=== PATIENT | female | born 1940 | race Caucasian/White ===

== ENCOUNTER 2017-08-22 11:57 | Inpatient (IN) ==
--- NOTE | 2017-08-22 13:42 | Emergency Department Report ---
General Adult HPI - General Chief complaint: Medical Emergency Stated complaint: constipation, alter ment status Time Seen by Provider: 08/22/17 13:24 Source: family Mode of arrival: wheelchair Limitations: altered mental status - History of Present Illness HPI narrative: Patient is a 76-year-old female who resides at home with her . She has severe dementia and has had a steady. Physical decline over the past 2 weeks. Patient's reports that he is no longer able to care for her at home. They have had home health. However, patient has not had a bowel movement for over one week. Patient arrives by wheelchair, she is breathing on room air. Does not appear to be in any acute distress. Onset (ago): day(s) Location: abdomen Radiation: non-radiation Treatments prior to arrival: none - Related Data Home Medications Medication Instructions Recorded Confirmed Aspirin 81 mg PO DAILY 08/07/17 08/22/17 Atorvastatin [Lipitor] 20 mg PO HS 08/07/17 08/22/17 Cholecalciferol (Vitamin D3) 2,000 unit PO DAILY 08/07/17 08/22/17 [Vitamin D3] Hydrocodone/APAP 7.5/325 [[place] 1 tab PO Q4H PRN 08/07/17 08/22/17 7.5/325] Insulin Glargine,Hum.rec.anlog 22 unit SQ HS 08/07/17 08/22/17 [Lantus Solostar] Insulin Lispro [HumaLOG] 19 unit SQ TIDWM 08/07/17 08/22/17 Lisinopril [Prinivil] 20 mg PO HS 08/07/17 08/22/17 Pantoprazole Sodium [Protonix] 40 mg PO ACB 08/07/17 08/22/17 Potassium Chloride [Klor-Con 10] 20 meq PO DAILY 08/07/17 08/22/17 Venlafaxine HCl [Venlafaxine HCl 150 mg PO HS 08/07/17 08/22/17 ER] hydroCHLOROthiazide 25 mg PO QAM 08/07/17 08/22/17 [Hydrochlorothiazide] Cariprazine HCl [Vraylar] 1.5 mg PO DAILY 08/22/17 08/22/17 Allergies Allergy/AdvReac Type Severity Reaction Status Date / Time codeine AdvReac Intermediate CRAZY Verified 08/22/17 13:47 Review of Systems Limitations: ROS unobtainable due to patient's medical condition (dementia) PFSH Patient Stated Medical History Cerebrovascular Accident Yes Dementia Yes Transient Ischemic Attacks ( Yes: multiple TIA) Cataracts Yes Angina Yes Hypertension Yes Pneumonia Yes Diabetes Mellitus Type 2 Yes Gastroesophageal Reflux Yes Disease Hx Incontinence Yes Hx Urinary Tract Infection Yes Other Musculoskeletal Yes: FRACTURES Depression Yes Surgical History: Multiple orthopedic surgeries Family History Updates: N/A - Social History Smoking status: Never smoker Housing: house Household members: spouse Social history: PCP Dr Cohn Physical Exam - Normal Exams: Eyes:: Pupils are PERRLA w/ EOMI Chest/Respirations:: Clear all batista Cardiovascular:: Regular rate and rhythm Abdomen:: Bowel sounds positive, soft, non-tender Neurological:: Patient is alert Course Vital Signs Temperature 98.3 F 08/22/17 12:10 Pulse Rate 90 08/22/17 12:10 Respiratory Rate 20 08/22/17 12:10 Blood Pressure 115/67 08/22/17 12:10 Pulse Oximetry 96 08/22/17 12:10 Temperature 97.2 F 08/22/17 16:28 Pulse Rate 95 08/22/17 17:00 Respiratory Rate 20 08/22/17 16:28 Blood Pressure 134/71 08/22/17 16:28 Pulse Oximetry 95 08/22/17 16:28 Medical Decision Making - [facility] Narrative Medical decision making narrative: 1500- [facility]. Discussed patient's history, clinical exam, hyperkalemia. He accepts patient for inpatient admission. Will give IV calcium gluconate, dextrose and insulin to help with hyperkalemia. Discussed plan of admission with patient's . - Differential Diagnosis small bowel obstruction, ileus, weakness, altered mentation - Lab Data Result diagrams: 08/22/17 14:00 08/22/17 16:55 Lab Results 08/22/17 08/22/17 Range/Units 13:59 14:00 WBC 9.2 (4.5-11.0) T/MM3 RBC 3.90 L (4.00-5.20) M/MM3 Hgb 12.0 (12-16) GM/DL Hct 37.1 (36-46) % MCV 95.1 (80-100) UM3 MCH 30.8 (26-34) UUG MCHC 32.3 (31-37) GM/DL RDW Std Deviation 44.6 (36.9-50.2) FL Plt Count 248 D (130-400) T/MM3 MPV 9.2 L (9.4-12.4) UM3 Immature Gran % (Auto) 0.1 (0.0-0.5) % Neut % (Auto) 61.8 (33-66) % Lymph % (Auto) 25.7 (23-45) % [place] % (Auto) 10.4 H (0-9.0) % Eos % (Auto) 1.7 (0-4) % Baso % (Auto) 0.3 (0-2) % Neut # (Auto) 5.7 (1.8-7.7) T/MM3 Lymph # (Auto) 2.4 (1-4.8) T/MM3 [place] # (Auto) 1.0 H (0-0.8) T/MM3 Eos # (Auto) 0.2 (0-0.5) T/MM3 Baso # (Auto) 0.0 (0-0.2) T/MM3 Abs Immat Gran (auto) 0.01 (0.00-0.03) T/MM3 Turbidity < 20 (0-20) Sodium 143 (134-144) MEQ/L Potassium 6.5 H* (3.6-5) MEQ/L Chloride 107 (98-107) MEQ/L Carbon Dioxide 24 (22-30) MEQ/L Anion Gap 12 (5-15) MEQ/L BUN 48.0 H (7-17) MG/DL Creatinine 1.8 H (0.7-1.2) MG/DL GFR Calculation 27 BUN/Creatinine Ratio 27 H (6-26) RATIO Glucose 102 (65-110) MG/DL Calculated Osmolality 288 H (261-280) MOSM/KG Calcium 9.9 (8.4-10.2) MG/DL Total Bilirubin 0.70 (0.20-1.30) MG/DL Icterus Index < 2 (0-7) AST 26 (14-36) U/L ALT 36 (9-52) U/L Alkaline Phosphatase 153 H (38-126) U/L Total Protein 7.2 (6.3-8.2) G/DL Albumin 4.0 (3.5-5.0) G/DL Globulin 3.2 (2.4-3.6) G/DL Albumin/Globulin Ratio 1.3 (1.1-2.2) RATIO Specimen Hemolysis < 15 (0-25) Disposition Clinical Impression: Acute hyperkalemia Disposition: 02 To [facility] [place] Condition: Stable Time of Disposition: 15:14 - Seen By: midlevel
--- OUTSIDE RECORDS SUMMARY | 2017-08-22 13:56 | External Medical Summary | Continuity of Care Document ---
:1940 Author Organization [facility] Allergies There is no data. Medications There is no data. Problems There is no data. Procedures There is no data. Results There is no data. Encounters ACCT No. Visit Discharge Status Pt. Type Provider Facility Loc./Unit Complaint Date/Time [id number] 09/10/2013 09/10/2013 CLS Outpatient 10:41:00 23:59:59 [id number] 09/03/2013 09/03/2013 CLS Outpatient 10:01:00 23:59:59 [id number] 09/02/2013 09/02/2013 CLS Outpatient 14:35:00 23:59:59 [id number] 06/09/2013 06/09/2013 CLS Outpatient 09:24:00 23:59:59 [id number] 04/24/2013 04/24/2013 CLS Outpatient 10:02:00 23:59:59
--- NOTE | 2017-08-22 14:21 | XRay Report ---
Indication: constipation PROCEDURE: XR abdomen 2V: Encounter: Initial Comparison: None Findings: The visualized lung bases are clear. There is no free air on the upright view. The bowel gas pattern is nonobstructive and nonspecific. Gas is seen in nondilated small and large bowel to the level of the rectum. Moderate stool is seen throughout the colon. Impression: Nonobstructive nonspecific bowel gas pattern. .
[2017-08-22] MEDS ORDERED: NS 1,000 ML IV ONE (14:35)
[2017-08-22] MEDS ORDERED: SODIUM POLYSTYRENE SULFONATE 15 GM/60 ML BOTTLE PO ONE (14:38)
[2017-08-22] MEDS ORDERED: CALCIUM GLUCONATE 1,000mg/10ml INJECTION IVP ONE (15:10)
[2017-08-22] MEDS ORDERED: DEXTROSE 50% SYRINGE 50ml (1 AMP) IVP ONE (15:13)
[2017-08-22] MEDS ORDERED: INSULIN REGULAR, HUMAN 100 UNIT/ML INJECTION IVP ONE (15:13)
[2017-08-22] MEDS ORDERED: BISACODYL 10 MG SUPPOSITORY RECTALLY ONE (16:14)
[2017-08-22] MEDS ORDERED: ONDANSETRON 4 MG/2 ML INJECTION IVP PRN (16:29)
[2017-08-22 16:34] VITALS: BMI 39.1
[2017-08-22] MEDS: 1/2 NS 1,000 ML IV SCH (16:36)
--- NOTE | 2017-08-22 16:39 | History & Physical Report ---
History of Present Illness Date: 08/22/17 Chief complaint: Constipation HPI: Yesi Griffin is a 76 year old woman with a hx of advanced dementia. She lives at home with family and per ED report, has had quite a decline over the last 2 weeks despite having home health support. Please note that the patient is unable to participate in any part of the interview process d/t dementia, and family was unavailable. She has had 3 ED visits this month: the first was on 08/07 for a fall, and all imaging studies (CT head/c-spine/maxillofacial; CXR; B/ L hands/wrists, and left humerus) were negative for acute findings. She returned on 08/12/17 for a possible fall, and was diagnosed with UTI. She was Rx Bactrim SS BID [id number]. Urine culture grew out Klebsiella pneumoniae, sensitive to Bactrim. At that time, K was 4.9, BUN 51, and creatinine was 1.5. She returned again on 08/22/17 d/t constipation. She hasn't had a BM x1 week. Labs on 08/22/17 showed K of 6.5, BUN of 48, and creatinine of 1.8. Review of [facility] records revealed creatinine 1.1-1.5 in 2017, K 5.3-5.4 in 2017, and A1c of 6.4% in December,. She was diagnosed with UTI x2 in 2017, once with Klebsiella and the other with E. coli. KUB on 08/22/17 showed nonspecific bowel gas pattern and moderate amount of colonic stool. In the ED, she received Kayexelate 30 gm, NS 1L, plus calcium, insulin, and dextrose. With her severe hyperkalemia and elevated creatinine, she was admitted to inpatient status under the hospitalist service. Review of Systems ROS unobtainable: due to mental status Past Medical History Vascular dementia CVA/TIA Broca's aphasia HTN Dyslipidemia DM type 2 CKD Chronic hyperkalemia, 5.3-5.4 Sleep apnea Chronic low back pain and leg pain GERD Environmental allergies Urinary incontinence Anxiety, depression Surgical History: Multiple orthopedic surgeries Family History Updates: Family history is unobtainable from patient. Per outside records, her mother had CAD and DM; father had dementia and DM. A brother from an accident. - Social History Smoking status: Never smoker Social history: PCP Dr Cohn Medications Home Medications Medication Instructions Recorded Confirmed Type Aspirin 81 mg PO DAILY 08/07/17 08/22/17 History Atorvastatin [Lipitor] 20 mg PO HS 08/07/17 08/22/17 History Cholecalciferol (Vitamin D3) 2,000 unit PO DAILY 08/07/17 08/22/17 History [Vitamin D3] Hydrocodone/APAP 7.5/325 [[place] 1 tab PO Q4H PRN 08/07/17 08/22/17 History 7.5/325] Insulin Glargine,Hum.rec.anlog 22 unit SQ HS 08/07/17 08/22/17 History [Lantus Solostar] Insulin Lispro [HumaLOG] 19 unit SQ TIDWM 08/07/17 08/22/17 History Lisinopril [Prinivil] 20 mg PO HS 08/07/17 08/22/17 History Pantoprazole Sodium [Protonix] 40 mg PO ACB 08/07/17 08/22/17 History Potassium Chloride [Klor-Con 10] 20 meq PO DAILY 08/07/17 08/22/17 History Venlafaxine HCl [Venlafaxine HCl 150 mg PO HS 08/07/17 08/22/17 History ER] hydroCHLOROthiazide 25 mg PO QAM 08/07/17 08/22/17 History [Hydrochlorothiazide] Cariprazine HCl [Vraylar] 1.5 mg PO DAILY 08/22/17 08/22/17 History Allergies Allergy/AdvReac Type Severity Reaction Status Date / Time codeine AdvReac Intermediate CRAZY Verified 08/22/17 13:47 Exam Vital Signs: Temperature 97.2 F 08/22/17 16:28 Pulse Rate 103 H 08/22/17 16:28 Respiratory Rate 20 08/22/17 16:28 Blood Pressure 134/71 08/22/17 16:28 Pulse Oximetry 95 08/22/17 16:28 Height/Weight/BMI: Height 1.55 m Weight 93.9 kg Body Mass Index 39.1 - Constitutional Present: mild distress (restless), well nourished, well developed, obese - Routine HEENT Exam Head: Present: normocephalic Eye: Present: PERRL. Absent: conjunctival icterus, scleral injection ENT: Present: mucous membranes dry, oropharynx clear - Routine Neck Exam Present: supple - Routine Respiratory Exam Present: CTA bilaterally - Routine Cardiovascular Exam Present: RRR, S1, S2 - Routine Abdominal Exam Present: soft, normoactive bowel sounds, non distended, non tender - Routine Extremities Exam Present: edema (B/L pedal edema trace-1+. Left leg has a larger calf circumference and she complains of diffuse tenderness on palpation of left leg but not right. Her calf is soft to palpation. She has a well-healed scar from total knee replacement on her right knee.), pulses intact - Routine Skin Exam Present: intact, dry, warm - Routine Neurological Exam Present: alert (to self only), tremors. Absent: oriented X3, normal speech ( mumbles, very difficult to understand) - Routine Psychiatric Exam Present: unable to assess (restless, pulls at gown, tries to reposition herself in bed) Results - Labs CBC & Chem 7: 08/22/17 14:00 08/22/17 16:55 - ECG Data Tracing #1 I reviewed this ECG and interpreted as documented below: NSR with slightly peaked T waves, left axis deviation, fair r-wave progression, no st segment elevation/depression. Fair amount of artifact present. Assessment and Plan Assessment and Plan: IMPRESSION Hyperkalemia with K of 6.5, POA (history of chronic hyperkalemia, 5.3-5.4) Elevated creatinine of 1.8, baseline 1.1-1.5 Constipation Recent UTI with Klebsiella pneumoniae, treated with Bactrim x 10 days (course completed 08/21) Vascular dementia CVA/TIA Broca's aphasia HTN Dyslipidemia DM type 2, A1c was 6.4% in December, CKD Sleep apnea Chronic low back pain and leg pain GERD Environmental allergies Urinary incontinence, recurrent UTI Anxiety, depression PLAN Admit, inpatient status under Dr. Galeano. Hyperkalemia/elevated Creatinine: urgent treatment rendered in ED; Recheck K improved to 5.5. Will continue with IVF of 1/2 NS at 125 mL/hr. EKG obtain, showing peaked T waves. Monitor telemetry. UA pending. Constipation: dulcolax suppository x1; initiate oral bowel regimen of MiraLAX BID and Senna Plus BID; Lactulose PRN. Consult speech therapy d/t hx of aphasia; with advancing dementia she carries a risk of aspiration. May need [facility] screen when patient stabilizes. Code status is unknown -- will order as full code until this can be discussed with family. Froylan Repeat potassium showing decrease to 5.5. Discussed code status with family-request DNR. Order written. DVT Prophylaxis: SCD's Resuscitation Status: Do Not Resuscitate - Physician Narrative Physician: Lan Galeano MD Narrative: Date: 08/22/17 Time: 1933 Have independently interviewed and examined pt. Chart reviewed. Case discussed with ED provider, pt's and son, and my CONCILIATION COURT JUDGE. Care plan developed with my supervision; agree with above. Present to ED secondary to increasing weakness, decreased oral drive, and declining function at home. Multiple falls in recent past. Recent UTI treated with Bactrim. Patient not been eating/drinking last several days. Pt advanced dementia and acute illness preclude her from interacting with question. Found to have elevated potassium at 6.5 in ED. Placed in inpatient status for further treatment. Lungs: decreased CV: regular AB: soft nt MSE: nonverbal. Plan: Inpatient admission. IVF bolus given in ED. Given IV calcium/D50/Insulin to help shift potassium - repeat potassium showing decrease to 5.5. Speech to check swallow. Hold on Insulins for now-monitor blood sugar. Possible [facility] evaluation due to her dementia and decline. Likely needing shelter nursing care due to advancing dementia. Discussed code status with family - report patient is DNR. Hospital Course Summary Disclaimer: The visit summary below is not to be considered part of the above Progress Note. Hospital Course: 08/22/17 Admit, inpatient status under Dr. Galeano. Hyperkalemia/elevated Creatinine: urgent treatment rendered in ED; Recheck K improved to 5.5. Will continue with IVF of 1/2 NS at 125 mL/hr. EKG obtain, showing peaked T waves. Monitor telemetry. UA pending. Constipation: dulcolax suppository x1; initiate oral bowel regimen of MiraLAX BID and Senna Plus BID; Lactulose PRN. Consult speech therapy d/t hx of aphasia; with advancing dementia she carries a risk of aspiration. May need [facility] screen when patient stabilizes. Code status is unknown -- will order as full code until this can be discussed with family.
[2017-08-22] MEDS ORDERED: LACTULOSE 20 GM/30 ML ORAL LIQUID PO PRN (17:04)
[2017-08-22] MEDS: HALOPERIDOL 5 MG/ML INJECTION IVP PRN (21:21)
[2017-08-22] MEDS: SENNA + DOCUSATE TABLET PO SCH (21:21)
[2017-08-22] MEDS: POLYETHYL GLYCOL 3350 17gm PACKET PO SCH (21:21)
[2017-08-23] MEDS: 1/2 NS 1,000 ML IV SCH ×4 (01:00→22:56)
[2017-08-23] MEDS: HALOPERIDOL 5 MG/ML INJECTION IVP PRN (03:50)
[2017-08-23] MEDS ORDERED: HYDROCODONE/APAP 5mg/325mg TABLET PO PRN (06:05)
[2017-08-23] MEDS: SENNA + DOCUSATE TABLET PO SCH ×2 (12:24→21:08)
--- NOTE | 2017-08-23 12:58 | Progress Note ---
- Date 08/23/17 Subjective: Yesi was in bed, her at bedside. He reports that over the last few days she declined significantly, and poses a safety to herself and him. She wanders around the house and has a history of falling. He provides 24-hour care , as she needs help with dressing, bathing, toileting, and feeding herself. Her communication has turned into "jibberish" most of the time, though rarely she speaks "Albanian" (ie she answered Dr. Chilel's questions clearly earlier today). He confirmed DPOA, Living will, and DNR status. When I spoke with Yesi she said "yes" when I asked if she had pain, but wasn't able to localize it. She then started to mumble and moan and I could no longer understand what she was trying to say. Objective Vital signs: Temperature 97.4 F 08/23/17 11:34 Pulse Rate 93 08/23/17 11:34 Respiratory Rate 20 08/23/17 11:34 Blood Pressure 136/57 08/23/17 11:34 Pulse Oximetry 94 08/23/17 11:34 Height/Weight/BMI: Height 1.55 m Weight 93.4 kg Body Mass Index 39.1 - Constitutional Present: well nourished, well developed, obese Comments: furrows her brow occasionally. - Routine HEENT Exam Head: Present: normocephalic Eye: Present: PERRL. Absent: conjunctival icterus, scleral injection ENT: Present: oropharynx clear - Routine Respiratory Exam Present: CTA bilaterally - Routine Cardiovascular Exam Present: RRR, S1, S2 - Routine Abdominal Exam Present: soft, normoactive bowel sounds, non tender, distended - Routine Extremities Exam Present: edema (trace - improved from yest), pulses intact - Routine Skin Exam Present: intact, dry, warm - Routine Neurological Exam Absent: oriented X3, normal speech - Routine Psychiatric Exam Present: unable to assess Results - Labs CBC & Chem 7: 08/23/17 04:11 08/23/17 04:11 Assessment and Plan Assessment and Plan: IMPRESSION Hyperkalemia with K of 6.5, POA (history of chronic hyperkalemia, 5.3-5.4) Elevated creatinine of 1.8, baseline 1.1-1.5 Constipation Recent UTI with Klebsiella pneumoniae, treated with Bactrim x 10 days (course completed 08/21) Vascular dementia CVA/TIA Broca's aphasia HTN Dyslipidemia DM type 2, A1c was 6.4% in December, CKD Sleep apnea Chronic low back pain and leg pain GERD Environmental allergies Urinary incontinence, recurrent UTI Anxiety, depression PLAN Hyperkalemia resolved with IVF and treatment initiated yesterday in ED. Today K is 4.8. Renal function also improved with BUN down to 36 and creatinine 1.3. Continue 1/ 2 NS at lower rate of 75 ml/hr. TSH was low at 0.3; she is not on any thyroid replacement. Will check free T3 and free T4. Seen by Dr. Chilel -- awaiting recommendations. Speech therapy recommends thickened liquids. D/W spouse and with Dr. Galeano. DVT Prophylaxis: SCD's Resuscitation Status: Do Not Resuscitate - Time spent with patient Time with patient PN: 25 minutes - Physician Narrative Physician: Lan Galeano MD Narrative: Date: 08/23/17 Time: 1254 Have independently interviewed and examined pt. Chart reviewed. Cased discussed with CM, , and my NURSES' AIDE. Care plan developed with my supervision; agree with above. Sleeping in bed. Very somnolent. Will move, but not wake. Did receive 2 doses of Haldol. Creatinine and potassium improving. Not change in cognitive status. Lungs: decreased, upper airway noises. CV: regular AB: soft nt Plan: Decrease IVF to 75cc/hr. Continue to hold Lisinopril and potassium. Psychiatry recommending restarting Wellbutrin to minimize withdrawal-recommends giving in morning. Will continue with supportive care secondary to patients decreased functional ability. Not certain at this time if [facility] would be beneficial, currently not functional enough for [facility] floor care and activity. Potentially need Hospice care if not making improvement. Discussed with CM about potential palliative assessment, but do think it is slightly early to initiate. Hospital Course Summary Disclaimer: The visit summary below is not to be considered part of the above Progress Note. Hospital Course: 08/22/17 Admit, inpatient status under Dr. Galeano. Hyperkalemia/elevated Creatinine: urgent treatment rendered in ED; Recheck K improved to 5.5. Will continue with IVF of 1/2 NS at 125 mL/hr. EKG obtain, showing peaked T waves. Monitor telemetry. UA pending. Constipation: Dulcolax suppository x1; initiate oral bowel regimen of MiraLAX BID and Senna Plus BID; Lactulose PRN. Consult speech therapy d/t hx of aphasia; with advancing dementia she carries a risk of aspiration. May need [facility] screen when patient stabilizes. Code status -- DNR. 08/23/17 Hyperkalemia resolved with IVF and treatment initiated yesterday in ED. Today K is 4.8. Renal function also improved with BUN down to 36 and creatinine 1.3. Continue 1/ 2 NS, decreasing rate to 75cc/hr. TSH was low at 0.3; she is not on any thyroid replacement. Will check free T3 and free T4. Seen by Dr. Chilel -- recommends restarting Wellbutrin to minimize withdrawal - recommends giving in morning. Speech therapy recommends thickened liquids.
--- NOTE | 2017-08-23 13:13 | Neuropsychiatric Consult ---
[facility] Date: 08/23/17 Reason for Consultation: Agitation with dementia Start Time: 10:20 Stop Time: 11:00 History of Present Illness: Patient is a 76-year-old female; psychiatry was consulted related to behaviors/agitation in the context of established dementia. H&P per primary team: "Yesi Griffin is a 76 year old woman with a hx of advanced dementia. She lives at home with family and per ED report, has had quite a decline over the last 2 weeks despite having home health support. Please note that the patient is unable to participate in any part of the interview process d /t dementia, and family was unavailable. She has had 3 ED visits this month: the first was on 08/07/17 for a fall, and all imaging studies (CT head/c-spine/ maxillofacial; CXR; B/L hands/wrists, and left humerus) were negative for acute findings. She returned on 08/12/17 for a possible fall, and was diagnosed with UTI. She was Rx Bactrim SS BID [id number]. Urine culture grew out Klebsiella pneumoniae, sensitive to Bactrim. At that time, K was 4.9, BUN 51, and creatinine was 1.5. She returned again on 08/22/17 d/t constipation. She hasn't had a BM x1 week. Labs on 08/22/17 showed K of 6.5, BUN of 48, and creatinine of 1.8. Review of [facility] records revealed creatinine 1.1-1.5 in 2017, K 5.3-5.4 in 2017, and A1c of 6.4% in December,. She was diagnosed with UTI x2 in 2017, once with Klebsiella and the other with E. coli. KUB on 08/22/17 showed nonspecific bowel gas pattern and moderate amount of colonic stool. In the ED, she received Kayexelate 30 gm, NS 1L, plus calcium, insulin, and dextrose. With her severe hyperkalemia and elevated creatinine, she was admitted to inpatient status under the hospitalist service." Primary team states she is now medically stable. On interview, patient participates minimally. She doesn't open her eyes but responds to some questions appropriately. She is able to lift her arm when asked. She is not able to give meaningful history about her mood, behavior, etc. Patient's is at bedside. He has been caring for her at home and says he is no longer able to do so. He states that there has been a more significant decline x 2 weeks, where she was falling more, hallucinating about a woman coming into her room to steal her clothes, not talking to him as she had been before, and has had decreased appetite. She has made morbid statements to her but he doesn't feel she's physically able to harm herself or others. He states her PCP was treating her with Haldol 1 TID but was concerned about EPS , so recently switched her to Vraylar 1.5mg PO q HS. She was also taking Effexor XR 150mg PO daily prior to admission but these have been held. Depression: Changes in Appetite Psychosis: Hallucinations/Illusions, Delusions Dementia: Memory Impairment, Poor Executive Functioning [facility], [facility] Patient Stated Medical History Cerebrovascular Accident Yes Dementia Yes Transient Ischemic Attacks ( Yes: multiple TIA) Cataracts Yes Angina Yes Hypertension Yes Bronchitis Yes Pneumonia Yes: hx of Diabetes Mellitus Type 2 Yes Gastroesophageal Reflux Yes Disease Hx Incontinence Yes Hx Urinary Tract Infection Yes Other Musculoskeletal Yes: FRACTURES Depression Yes Surgical History: Multiple orthopedic surgeries Family History: Unable to obtain from patient - Social History Smoking status: Never smoker Housing: house Household members: spouse Review of Systems ROS unobtainable: due to mental status Mental Status Exam Vitals: Last Vital Signs Temp 97.4 F 08/23/17 11:34 Pulse 93 08/23/17 11:34 Resp 20 08/23/17 11:34 BP 136/57 08/23/17 11:34 Pulse Ox 94 08/23/17 11:34 Height: 1.55 m Weight: 93.4 kg - Mental Status Exam Muscle Strength/Tone: Weak Dressing: Casual Grooming: Poor Attitude: Uncooperative (at times) Motor Activity: Retardation, Restless (in bed) Eye Contact: Poor (does not open eyes) Speech: Slowed Volume: Soft Rhythm: Mumbled, Paucity of Language Sensory: Stupor, Confused Orientation: Disoriented to time, Disoriented to place, Disoriented to situation , Oriented to person Mood: Neutral (affect somewhat labile, moreso overnight - required PRNs) Rate of Thoughts: Delayed Thought Organization: Confused Associations: Illogical Abstract Reasoning: Impaired, concrete Thought Content: Paranoia (recently per ), Other (Poverty of thought during interview) Perception/Psychotic: Hx psychosis, not current (unclear whether current) Language: Naming Impaired Fund of Knowledge: Poor fund of knowledge Memory: Poor-immediate, Poor-recent, Poor-remote Suicidal Ideation: Other ( reports morbid statements) Homicidal Ideation: None Insight: Impaired Judgement: Impaired Impulse Control: Poor - Laboratory Result Diagrams: 08/23/17 04:11 08/23/17 04:11 Laboratory Results - last 24 hr 08/22/17 08/22/17 08/22/17 16:08 16:55 16:56 WBC RBC Hgb Hct MCV MCH MCHC RDW Std Deviation Plt Count MPV Immature Gran % (Auto) Neut % (Auto) Lymph % (Auto) Woodruff % (Auto) Eos % (Auto) Baso % (Auto) Neut # (Auto) Lymph # (Auto) Woodruff # (Auto) Eos # (Auto) Baso # (Auto) Abs Immat Gran (auto) Turbidity Cancelled Sodium Cancelled Potassium 5.5 H Cancelled Chloride Cancelled Carbon Dioxide Cancelled Anion Gap Cancelled BUN Cancelled Creatinine Cancelled GFR Calculation Cancelled BUN/Creatinine Ratio Cancelled Glucose Cancelled Glucometer 152 Calculated Osmolality Cancelled Calcium Cancelled Magnesium Icterus Index Cancelled TSH Specimen Hemolysis 38 H Cancelled Ur Collection Type Urine Color Urine Clarity Urine pH Ur Specific [place] Urine Protein Urine Glucose (UA) Urine Ketones Urine Occult Blood Urine Nitrate Urine Bilirubin Urine Urobilinogen Ur Leukocyte Esterase Urinalysis Comment Stl Cyclospora species Stool Rotavirus A PCR Stool Adenovirus (PCR) Stool Astrovirus (PCR) Stool Campylobacter PCR Stl C.difficile Tox PCR Stool Cryptosporidium PCR Stl E.coli Shiga Toxins Stl Enterotoxigenic E PCR Stool EPEC (PCR) Stool EAEC (PCR) Stool Entamoeba (PCR) Stool Giardia Lamblia PCR Stool Salmonella PCR Stool Sapovirus (PCR) Stl P. shigelloides PCR Stl Shigella/EIEC PCR St Y.enterocolitica PCR Stool Vibrio (PCR) Stl Vibrio cholera PCR Stl Norovirus GI/GII PCR 08/22/17 08/22/17 08/23/17 17:10 19:33 02:34 WBC RBC Hgb Hct MCV MCH MCHC RDW Std Deviation Plt Count MPV Immature Gran % (Auto) Neut % (Auto) Lymph % (Auto) Woodruff % (Auto) Eos % (Auto) Baso % (Auto) Neut # (Auto) Lymph # (Auto) Woodruff # (Auto) Eos # (Auto) Baso # (Auto) Abs Immat Gran (auto) Turbidity Sodium Potassium Chloride Carbon Dioxide Anion Gap BUN Creatinine GFR Calculation BUN/Creatinine Ratio Glucose Glucometer 144 Calculated Osmolality Calcium Magnesium Icterus Index TSH Specimen Hemolysis Ur Collection Type Urine, cath straight Urine Color Yellow Urine Clarity Clear Urine pH 5.0 Ur Specific [place] 1.025 Urine Protein Negative Urine Glucose (UA) Negative Urine Ketones Negative Urine Occult Blood Negative Urine Nitrate Negative Urine Bilirubin Negative Urine Urobilinogen 1.0 Ur Leukocyte Esterase Negative Urinalysis Comment Microscopic not ind. Stl Cyclospora species Negative Stool Rotavirus A PCR Negative Stool Adenovirus (PCR) Negative Stool Astrovirus (PCR) Negative Stool Campylobacter PCR Negative Stl C.difficile Tox PCR Negative Stool Cryptosporidium PCR Negative Stl E.coli Shiga Toxins Negative Stl Enterotoxigenic E PCR Negative Stool EPEC (PCR) Negative Stool EAEC (PCR) Negative Stool Entamoeba (PCR) Negative Stool Giardia Lamblia PCR Negative Stool Salmonella PCR Negative Stool Sapovirus (PCR) Negative Stl P. shigelloides PCR Negative Stl Shigella/EIEC PCR Negative St Y.enterocolitica PCR Negative Stool Vibrio (PCR) Negative Stl Vibrio cholera PCR Negative Stl Norovirus GI/GII PCR Negative 08/23/17 08/23/17 08/23/17 04:11 04:11 04:11 WBC 9.4 RBC 3.48 L Hgb 10.7 L Hct 33.0 L D MCV 94.8 MCH 30.7 MCHC 32.4 RDW Std Deviation 43.3 Plt Count 207 MPV 9.6 Immature Gran % (Auto) 0.2 Neut % (Auto) 65.7 Lymph % (Auto) 23.7 Woodruff % (Auto) 8.9 Eos % (Auto) 1.3 Baso % (Auto) 0.2 Neut # (Auto) 6.2 Lymph # (Auto) 2.2 Woodruff # (Auto) 0.8 Eos # (Auto) 0.1 Baso # (Auto) 0.0 Abs Immat Gran (auto) 0.02 Turbidity < 20 Sodium 141 Potassium 4.8 Chloride 108 H Carbon Dioxide 24 Anion Gap 9 BUN 36.0 H Creatinine 1.3 H D GFR Calculation 40 BUN/Creatinine Ratio 28 H Glucose 106 Glucometer Calculated Osmolality 279 Calcium 9.0 D Magnesium 1.7 Icterus Index < 2 TSH 0.30 L Specimen Hemolysis < 15 Ur Collection Type Urine Color Urine Clarity Urine pH Ur Specific [place] Urine Protein Urine Glucose (UA) Urine Ketones Urine Occult Blood Urine Nitrate Urine Bilirubin Urine Urobilinogen Ur Leukocyte Esterase Urinalysis Comment Stl Cyclospora species Stool Rotavirus A PCR Stool Adenovirus (PCR) Stool Astrovirus (PCR) Stool Campylobacter PCR Stl C.difficile Tox PCR Stool Cryptosporidium PCR Stl E.coli Shiga Toxins Stl Enterotoxigenic E PCR Stool EPEC (PCR) Stool EAEC (PCR) Stool Entamoeba (PCR) Stool Giardia Lamblia PCR Stool Salmonella PCR Stool Sapovirus (PCR) Stl P. shigelloides PCR Stl Shigella/EIEC PCR St Y.enterocolitica PCR Stool Vibrio (PCR) Stl Vibrio cholera PCR Stl Norovirus GI/GII PCR 08/23/17 11:13 WBC RBC Hgb Hct MCV MCH MCHC RDW Std Deviation Plt Count MPV Immature Gran % (Auto) Neut % (Auto) Lymph % (Auto) Woodruff % (Auto) Eos % (Auto) Baso % (Auto) Neut # (Auto) Lymph # (Auto) Woodruff # (Auto) Eos # (Auto) Baso # (Auto) Abs Immat Gran (auto) Turbidity Sodium Potassium Chloride Carbon Dioxide Anion Gap BUN Creatinine GFR Calculation BUN/Creatinine Ratio Glucose Glucometer 161 Calculated Osmolality Calcium Magnesium Icterus Index TSH Specimen Hemolysis Ur Collection Type Urine Color Urine Clarity Urine pH Ur Specific [place] Urine Protein Urine Glucose (UA) Urine Ketones Urine Occult Blood Urine Nitrate Urine Bilirubin Urine Urobilinogen Ur Leukocyte Esterase Urinalysis Comment Stl Cyclospora species Stool Rotavirus A PCR Stool Adenovirus (PCR) Stool Astrovirus (PCR) Stool Campylobacter PCR Stl C.difficile Tox PCR Stool Cryptosporidium PCR Stl E.coli Shiga Toxins Stl Enterotoxigenic E PCR Stool EPEC (PCR) Stool EAEC (PCR) Stool Entamoeba (PCR) Stool Giardia Lamblia PCR Stool Salmonella PCR Stool Sapovirus (PCR) Stl P. shigelloides PCR Stl Shigella/EIEC PCR St Y.enterocolitica PCR Stool Vibrio (PCR) Stl Vibrio cholera PCR Stl Norovirus GI/GII PCR Assessment and Plan (1) Psychosis Qualifiers: Psychosis type: unspecified psychosis type Qualified Code(s): F29 - Unspecified psychosis not due to a substance or known physiological condition Current visit: Yes Status: Acute Some element of delirium related to recent medical conditions (UTI, bowel impaction) suspected. reported behaviors at home in the context of dementia even prior to these medical problems. Patient received IV Haldol 2x in past 24 hours for continued agitation but medical team reports now medically stable. Will continue to observe whether behaviors now resolve or continue. is not clear on type of dementia. Recommend restarting Effexor in AM (not at HS) as reported she had been taking it and withdrawal can be uncomfortable. Psychiatry will continue to monitor; discuss with school age program associate of [facility] in regards to possibility of transfer.
[2017-08-23] MEDS: BISACODYL 10 MG SUPPOSITORY RECTALLY SCH (15:55)
[2017-08-23] MEDS: POLYETHYL GLYCOL 3350 17gm PACKET PO SCH (16:13)
[2017-08-23] MEDS: ATORVASTATIN 20 MG TABLET PO SCH (21:05)
[2017-08-24] MEDS: PANTOPRAZOLE 40 MG TABLET PO SCH (06:00)
[2017-08-24] MEDS: ASPIRIN 81 MG CHEWABLE TABLET PO SCH (08:15)
[2017-08-24] MEDS: SENNA + DOCUSATE TABLET PO SCH ×2 (08:15→20:05)
[2017-08-24] MEDS: BISACODYL 10 MG SUPPOSITORY RECTALLY SCH (12:16)
[2017-08-24] MEDS: 1/2 NS 1,000 ML IV SCH (13:16)
--- NOTE | 2017-08-24 15:55 | Progress Note ---
- Date 08/24/17 Subjective: F/U: Hyperkalemia, SHERRILL, Advance dementia with functional and cognitive decline Resting in bed with and her daughter at bedside. Did open eyes when I came in. Could answer questions with 'I don't know.' Feel back to sleep readily. Daughter able to get patient to eat some applesauce, but overall oral drive minimal. Is moving arms and legs more today than prior days. Objective Vital signs: Temperature 95.5 F L 08/24/17 08:00 Pulse Rate 91 08/24/17 08:00 Respiratory Rate 16 08/24/17 00:16 Blood Pressure 149/76 H 08/24/17 08:00 Pulse Oximetry 93 08/24/17 08:00 Height/Weight/BMI: Height 1.55 m Weight 93.4 kg Body Mass Index 39.1 - Constitutional Present: well nourished, well developed, obese, somnolent. Absent: agitated - Routine HEENT Exam Head: Present: normocephalic, atraumatic ENT: Present: mucous membranes moist - Routine Respiratory Exam Present: decreased breath sounds. Absent: rales, respiratory distress, rhonchi - Routine Cardiovascular Exam Present: RRR, no murmur - Routine Abdominal Exam Present: soft, non distended, non tender. Absent: normoactive bowel sounds ( decreased) - Routine Extremities Exam Present: pulses intact. Absent: cyanosis, clubbing - Routine Musculoskeletal Exam Musculoskeletal: Present: no clubbing or cyanosis - Routine Skin Exam Present: dry, warm - Routine Neurological Exam Somnolent - Routine Psychiatric Exam Comments: Somnolent Results - Labs CBC & Chem 7: 08/24/17 06:00 08/24/17 06:00 Assessment and Plan (1) Hyperkalemia Current visit: Yes Status: Acute (2) Acute kidney injury Current visit: Yes Status: Acute Assessment and Plan: IMPRESSION Hyperkalemia with K of 6.5, POA (history of chronic hyperkalemia, 5.3-5.4) Elevated creatinine of 1.8, baseline 1.1-1.5 Constipation Recent UTI with Klebsiella pneumoniae, treated with Bactrim x 10 days (course completed 08/21) Vascular dementia Advanced dementia with cognitive and functional decline Hx CVA/TIA Broca's aphasia HTN Dyslipidemia DM type 2, A1c was 6.4% in December, CKD Sleep apnea Chronic low back pain and leg pain GERD Environmental allergies Urinary incontinence, recurrent UTI Anxiety, depression PLAN Having episodes of improving mentation, but not sustaining alertness. Oral drive very diminished. Lab work showing improvement: Creatinine down to 1.0 with potassium normal at 4.4. Sodium normal. Sugars 110-160 range. WBC remains normal. Despite correction of potassium and renal function and improvement of hydration , mentation and cognitive gains not being seen. Discussed with family about patients current status - Minimal oral drive, minimal responsiveness. Realistically, I do not feel will see much interval improvement. Did discuss about Hospice care, are in favor for hospice due to her advanced dementia and significant functional and physical decline. [facility] as patient's care needs are well beyond what her could manage at home. Will continue with support through the weekend to see if any further rally is made, but like need Hospice intervention. Times spend with patient care 35 minutes. Discussed with family at length about end of life care. DVT Prophylaxis: SCD's Resuscitation Status: Do Not Resuscitate - Time spent with patient Time with patient PN: 35 minutes Coordination of Care: >50% of visit spent providing counseling/coordination of care - Physician Narrative Physician: Lan Galeano MD Narrative: Date: 08/24/17 Time: 1551 Hospital Course Summary Disclaimer: The visit summary below is not to be considered part of the above Progress Note. Hospital Course: 08/22/17 Admission Admit, inpatient status under Dr. Galeano. Hyperkalemia/elevated Creatinine: urgent treatment rendered in ED; Recheck K improved to 5.5. Will continue with IVF of 1/2 NS at 125 mL/hr. EKG obtain, showing peaked T waves. Monitor telemetry. UA pending. Constipation: Dulcolax suppository x1; initiate oral bowel regimen of MiraLAX BID and Senna Plus BID; Lactulose PRN. Consult speech therapy d/t hx of aphasia; with advancing dementia she carries a risk of aspiration. May need [facility] screen when patient stabilizes. Code status -- DNR. 08/23/17 Hyperkalemia resolved with IVF and treatment initiated yesterday in ED. Today K is 4.8. Renal function also improved with BUN down to 36 and creatinine 1.3. Continue 1/ 2 NS, decreasing rate to 75cc/hr. TSH was low at 0.3; she is not on any thyroid replacement. Will check free T3 and free T4. Seen by Dr. Chilel -- recommends restarting Wellbutrin to minimize withdrawal - recommends giving in morning. Speech therapy recommends thickened liquids. 08/24/17 Having episodes of improving mentation, but not sustaining alertness. Oral drive very diminished. Lab work showing improvement: Creatinine down to 1.0 with potassium normal at 4.4. Sodium normal. Sugars 110-160 range. WBC remains normal. Despite correction of potassium and renal function and improvement of hydration , mentation and cognitive gains not being seen. Discussed with family about patients current status - Minimal oral drive, minimal responsiveness. Realistically, I do not feel will see much interval improvement. Did discuss about Hospice care, are in favor for hospice due to her advanced dementia and significant functional and physical decline. Would like [facility] hosp[facility]) as patient's care needs are well beyond what her could manage at home. Will continue with support through the weekend to see if any further rally is made, but like need Hospice intervention.
[2017-08-24] MEDS: ATORVASTATIN 20 MG TABLET PO SCH (20:05)
[2017-08-25] MEDS: 1/2 NS 1,000 ML IV SCH ×2 (02:55→16:20)
[2017-08-25] MEDS: PANTOPRAZOLE 40 MG TABLET PO SCH (06:25)
[2017-08-25] MEDS: SENNA + DOCUSATE TABLET PO SCH ×2 (10:21→21:14)
[2017-08-25] MEDS: BISACODYL 10 MG SUPPOSITORY RECTALLY SCH (10:21)
[2017-08-25] MEDS: ASPIRIN 81 MG CHEWABLE TABLET PO SCH (10:22)
--- NOTE | 2017-08-25 13:23 | Progress Note ---
- Date 08/25/17 Subjective: F/U: Hyperkalemia, SHERRILL, Advance dementia with functional and cognitive decline Not showing improvement. Will recognize family/friends, but not able to converse --has 'gibberish.' Only oral intake some bites of applesauce. More restless. Less time being awake and alert. Objective Vital signs: Temperature 96.7 F L 08/25/17 08:00 Pulse Rate 71 08/25/17 08:00 Respiratory Rate 16 08/25/17 08:00 Blood Pressure 147/69 H 08/25/17 08:00 Pulse Oximetry 97 08/25/17 08:00 Height/Weight/BMI: Height 1.55 m Weight 91.8 kg Body Mass Index 39.1 - Constitutional Present: well nourished, well developed, obese, somnolent - Routine HEENT Exam Head: Present: normocephalic, atraumatic ENT: Present: mucous membranes moist - Routine Respiratory Exam Present: decreased breath sounds. Absent: respiratory distress - Routine Cardiovascular Exam Present: RRR, no murmur - Routine Abdominal Exam Present: soft, normoactive bowel sounds, non distended, non tender. Absent: guarding - Routine Extremities Exam Present: pulses intact. Absent: cyanosis, clubbing - Routine Skin Exam Present: dry, warm - Routine Neurological Exam Somnolent-does move legs spontaneously - Routine Psychiatric Exam Comments: Somnolent. Results - Labs CBC & Chem 7: 08/24/17 06:00 08/24/17 06:00 Assessment and Plan (1) Hyperkalemia Current visit: Yes Status: Acute (2) Acute kidney injury Current visit: Yes Status: Acute Assessment and Plan: IMPRESSION Hyperkalemia with K of 6.5, POA (history of chronic hyperkalemia, 5.3-5.4) Elevated creatinine of 1.8, baseline 1.1-1.5 Constipation Recent UTI with Klebsiella pneumoniae, treated with Bactrim x 10 days (course completed 08/21) Vascular dementia Advanced dementia with cognitive and functional decline Hx CVA/TIA Broca's aphasia HTN Dyslipidemia DM type 2, A1c was 6.4% in December, CKD Sleep apnea Chronic low back pain and leg pain GERD Environmental allergies Urinary incontinence, recurrent UTI Anxiety, depression PLAN No gains from yesterday - if anything, more somnolent and restless. Essentially no oral drive. Will stop SCD as family wonders if they are bothering her. Not initiate SCD as looking to transition to comfort care. Can discontinue telemetry. Add lorazepam 0.5mg IV q4H prn and MS 1-2mg IV q2H prn for symptom control and comfort. Discussed with patient's daughter. Do feel hospice care reasonable. They are favoring [facility] as very [facility] for daughter and . Case discussed with family. Times spend with patient care 25 minutes. DVT Prophylaxis: SCD's Resuscitation Status: Do Not Resuscitate - Time spent with patient Time with patient PN: 25 minutes - Physician Narrative Physician: Lan Galeano MD Narrative: Date: 08/25/17 Time: 1320 Hospital Course Summary Disclaimer: The visit summary below is not to be considered part of the above Progress Note. Hospital Course: 08/22/17 Admission Admit, inpatient status under Dr. Galeano. Hyperkalemia/elevated Creatinine: urgent treatment rendered in ED; Recheck K improved to 5.5. Will continue with IVF of 1/2 NS at 125 mL/hr. EKG obtain, showing peaked T waves. Monitor telemetry. UA pending. Constipation: Dulcolax suppository x1; initiate oral bowel regimen of MiraLAX BID and Senna Plus BID; Lactulose PRN. Consult speech therapy d/t hx of aphasia; with advancing dementia she carries a risk of aspiration. May need [facility] screen when patient stabilizes. Code status -- DNR. 08/23/17 Hyperkalemia resolved with IVF and treatment initiated yesterday in ED. Today K is 4.8. Renal function also improved with BUN down to 36 and creatinine 1.3. Continue 1/ 2 NS, decreasing rate to 75cc/hr. TSH was low at 0.3; she is not on any thyroid replacement. Will check free T3 and free T4. Seen by Dr. Chilel -- recommends restarting Wellbutrin to minimize withdrawal - recommends giving in morning. Speech therapy recommends thickened liquids. 08/24/17 Having episodes of improving mentation, but not sustaining alertness. Oral drive very diminished. Lab work showing improvement: Creatinine down to 1.0 with potassium normal at 4.4. Sodium normal. Sugars 110-160 range. WBC remains normal. Despite correction of potassium and renal function and improvement of hydration , mentation and cognitive gains not being seen. Discussed with family about patients current status - Minimal oral drive, minimal responsiveness. Realistically, I do not feel will see much interval improvement. Did discuss about Hospice care, are in favor for hospice due to her advanced dementia and significant functional and physical decline. Would like Inpatient hospice ([facility]) as patient's care needs are well beyond what her could manage at home. Will continue with support through the weekend to see if any further rally is made, but like need Hospice intervention. 08/25/17 No gains from yesterday - if anything, more somnolent and restless. Essentially no oral drive. Will stop SCD as family wonders if they are bothering her. Not initiate SCD as looking to transition to comfort care. Can discontinue telemetry. Add lorazepam 0.5mg IV q4H prn and MS 1-2mg IV q2H prn for symptom control and comfort. Discussed with patient's daughter. Do feel hospice care reasonable. They are favoring [facility] as very [facility] for daughter and .
[2017-08-25 19:29] VITALS: RESP 20
[2017-08-25] MEDS: ATORVASTATIN 20 MG TABLET PO SCH (21:14)
[2017-08-25] MEDS ORDERED: FALL RISK - PHARMACY CONSULT XX ONE (21:31)
[2017-08-26] MEDS: 1/2 NS 1,000 ML IV SCH (05:48)
[2017-08-26] MEDS: PANTOPRAZOLE 40 MG TABLET PO SCH (05:48)
[2017-08-26 07:52] VITALS: BP 136/66; PULSE 97; TEMP 95.9; O2SAT 93
--- NOTE | 2017-08-26 08:51 | Progress Note ---
- Date 08/26/17 Subjective: Yesi opened her eyes to verbal and vocalized something I could not understand. She soon closed her eyes and did not respond otherwise. Her lips were dry, but she was in no acute distress and was breathing comfortably on room air. She did not follow commands. No family was present. Objective Vital signs: Temperature 95.9 F L 08/26/17 07:49 Pulse Rate 97 08/26/17 07:49 Respiratory Rate 20 08/26/17 07:49 Blood Pressure 136/66 08/26/17 07:49 Pulse Oximetry 93 08/26/17 07:49 Height/Weight/BMI: Height 1.55 m Weight 90.5 kg Body Mass Index 39.1 - Constitutional Present: no acute distress, obese - Routine HEENT Exam Head: Present: normocephalic Eye: Present: PERRL. Absent: conjunctival icterus, scleral injection ENT: Present: mucous membranes dry - Routine Respiratory Exam Present: decreased breath sounds Comments: slightly coarse breath sounds - Routine Cardiovascular Exam Present: RRR, S1, murmur - Routine Abdominal Exam Present: soft, normoactive bowel sounds, non distended, non tender - Routine Extremities Exam Present: pulses intact, normal capillary refill. Absent: edema - Routine Musculoskeletal Exam Musculoskeletal: Present: no clubbing or cyanosis - Routine Skin Exam Present: intact, dry, warm - Routine Neurological Exam Absent: oriented X3 (oriented to self only), normal speech - Routine Psychiatric Exam Present: unable to assess Results - Labs CBC & Chem 7: 08/24/17 06:00 08/26/17 04:58 Assessment and Plan (1) Hyperkalemia Current visit: Yes Status: Acute (2) Acute kidney injury Current visit: Yes Status: Acute Assessment and Plan: IMPRESSION Hyperkalemia with K of 6.5, POA (history of chronic hyperkalemia, 5.3-5.4) Elevated creatinine of 1.8, baseline 1.1-1.5 Constipation Recent UTI with Klebsiella pneumoniae, treated with Bactrim x 10 days (course completed 08/21) Vascular dementia Advanced dementia with cognitive and functional decline Hx CVA/TIA Broca's aphasia HTN Dyslipidemia DM type 2, A1c was 6.4% in December, CKD Sleep apnea Chronic low back pain and leg pain GERD Environmental allergies Urinary incontinence, recurrent UTI Anxiety, depression PLAN K down to 3.6; will give KCl 20 mEq today. Continue with 1/2 NS since she is only taking in minimal amounts of oral fluids/ food. She has not been given any lorazepam or morphine yet. will discuss dc plans with CM Resuscitation Status: Do Not Resuscitate - Physician Narrative Physician: Lan Galeano MD Narrative: Date: 08/26/17 Time: 1450 Have independently interviewed and examined pt. Chart reviewed. Case discussed with CM, Family, and my [employer]ICER. Care plan developed with my supervision; agree with above. Little improvement. No oral drive. Brief periods of clarity. [facility] consulted-they do feel she is appropriate for inpatient hospice and could accept her this afternoon. Family in agreement. Lungs: decreased CV: regular MSE: not responsive. Plan: Will discharge to [facility] for inpatient hospice care. Condition terminal-anticipate life expectancy of less than 1 week. See orders for details. Hospital Course Summary Disclaimer: The visit summary below is not to be considered part of the above Progress Note. Hospital Course: 08/22/17 Admission Admit, inpatient status under Dr. Galeano. Hyperkalemia/elevated Creatinine: urgent treatment rendered in ED; Recheck K improved to 5.5. Will continue with IVF of 1/2 NS at 125 mL/hr. EKG obtain, showing peaked T waves. Monitor telemetry. UA pending. Constipation: Dulcolax suppository x1; initiate oral bowel regimen of MiraLAX BID and Senna Plus BID; Lactulose PRN. Consult speech therapy d/t hx of aphasia; with advancing dementia she carries a risk of aspiration. May need [facility] screen when patient stabilizes. Code status -- DNR. 08/23/17 Hyperkalemia resolved with IVF and treatment initiated yesterday in ED. Today K is 4.8. Renal function also improved with BUN down to 36 and creatinine 1.3. Continue 1/ 2 NS, decreasing rate to 75cc/hr. TSH was low at 0.3; she is not on any thyroid replacement. Will check free T3 and free T4. Seen by Dr. Chilel -- recommends restarting Wellbutrin to minimize withdrawal - recommends giving in morning. Speech therapy recommends thickened liquids. 08/24/17 Having episodes of improving mentation, but not sustaining alertness. Oral drive very diminished. Lab work showing improvement: Creatinine down to 1.0 with potassium normal at 4.4. Sodium normal. Sugars 110-160 range. WBC remains normal. Despite correction of potassium and renal function and improvement of hydration , mentation and cognitive gains not being seen. Discussed with family about patients current status - Minimal oral drive, minimal responsiveness. Realistically, I do not feel will see much interval improvement. Did discuss about Hospice care, are in favor for hospice due to her advanced dementia and significant functional and physical decline. Would like Inpatient hospice ([facility]) as patient's care needs are well beyond what her could manage at home. Will continue with support through the weekend to see if any further rally is made, but like need Hospice intervention. 08/25/17 No gains from yesterday - if anything, more somnolent and restless. Essentially no oral drive. Will stop SCD as family wonders if they are bothering her. Not initiate SCD as looking to transition to comfort care. Can discontinue telemetry. Add lorazepam 0.5mg IV q4H prn and MS 1-2mg IV q2H prn for symptom control and comfort. Discussed with patient's daughter. Do feel hospice care reasonable. They are favoring [facility] as very [facility] for daughter and . 08/26/17 Clinically, no gains made. Consulted with [facility]. They do feel patient appropriate for inpatient hospice. Will discharge to [facility] for inpatient hospice care. Condition terminal-anticipate life expectancy of less than 1 week. Terminal diagnosis: Advance dementia with rapid functional and cognitive decline. Roxanol and lorazepam for symptom control. Oral intake for comfort only - swallow impaired. Dr Jimenez for medical care while on hospice. See orders for details.
[2017-08-26] MEDS: ASPIRIN 81 MG CHEWABLE TABLET PO SCH (09:41)
[2017-08-26] MEDS: SENNA + DOCUSATE TABLET PO SCH (09:41)
[2017-08-26] MEDS: BISACODYL 10 MG SUPPOSITORY RECTALLY SCH (09:42)
--- NOTE | 2017-08-26 15:12 | Discharge Summary ---
Discharge Information Date of admission: 08/22/17 15:10 Anticipated date of discharge: 08/26/17 Attending Physician: Lan Galeano MD Primary care physician: Hugo Cohn MD Consults: Physician Consult: Griselda Chilel Reason For Exam: Worsening dementia Speech therapy [facility] - Discharge Diagnosis (1) Hyperkalemia Status: Acute (2) Acute kidney injury Status: Acute Discharge diagnosis Hyperkalemia with K of 6.5 (POA) Resolved Associated conditions and complications Terminal dementia - Vascular dementia, Advanced, with cognitive and functional decline Elevated creatinine of 1.8, baseline 1.1-1.5 Constipation Recent UTI with Klebsiella pneumoniae, treated with Bactrim x 10 days (course completed 08/21) Hx CVA/TIA Broca's aphasia HTN Dyslipidemia DM type 2, A1c was 6.4% in December, CKD Sleep apnea Chronic low back pain and leg pain GERD Environmental allergies Urinary incontinence, recurrent UTI Anxiety, depression - Laboratory Labs: Admit Lab 08/22/17 14:00 WBC 9.2 Hgb 12.0 Hct 37.1 MCV 95.1 Plt Count 248 D Neut % (Auto) 61.8 Lymph % (Auto) 25.7 Levy % (Auto) 10.4 H Eos % (Auto) 1.7 Baso % (Auto) 0.3 Admit Lab 08/22/17 13:59 Sodium 143 Potassium 6.5 H* Chloride 107 Carbon Dioxide 24 Anion Gap 12 BUN 48.0 H Creatinine 1.8 H GFR Calculation 27 BUN/Creatinine Ratio 27 H Glucose 102 Calculated Osmolality 288 H Calcium 9.9 Total Bilirubin 0.70 Icterus Index < 2 AST 26 ALT 36 Alkaline Phosphatase 153 H Total Protein 7.2 Albumin 4.0 Globulin 3.2 Albumin/Globulin Ratio 1.3 Other Laboratory Tests 08/23/17 08/23/17 08/23/17 04:11 04:11 04:11 Vitamin B12 521 TSH 0.30 L Free T4 1.03 Free T3 3.97 08/24/17 06:00 08/26/17 04:58 - Radiology Radiology: Date of Exam: 08/22/17 PROCEDURE: XR abdomen 2V Findings: The visualized lung bases are clear. There is no free air on the upright view. The bowel gas pattern is nonobstructive and nonspecific. Gas is seen in nondilated small and large bowel to the level of the rectum. Moderate stool is seen throughout the colon. Impression: Nonobstructive nonspecific bowel gas pattern. History of Present Illness HPI: Yesi Griffin is a 76 year old woman with a hx of advanced dementia. She lives at home with family and per ED report, has had quite a decline over the last 2 weeks despite having home health support. Please note that the patient is unable to participate in any part of the interview process d/t dementia, and family was unavailable. She has had 3 ED visits this month: the first was on 08/07 for a fall, and all imaging studies (CT head/c-spine/maxillofacial; CXR; B/ L hands/wrists, and left humerus) were negative for acute findings. She returned on 08/12/17 for a possible fall, and was diagnosed with UTI. She was Rx Bactrim SS BID [id number]. Urine culture grew out Klebsiella pneumoniae, sensitive to Bactrim. At that time, K was 4.9, BUN 51, and creatinine was 1.5. She returned again on 08/22/17 d/t constipation. She hasn't had a BM x1 week. Labs on 08/22/17 showed K of 6.5, BUN of 48, and creatinine of 1.8. Review of [facility] records revealed creatinine 1.1-1.5 in 2016, K 5.3-5.4 in 2017, and A1c of 6.4% in December,. She was diagnosed with UTI x2 in 2017, once with Klebsiella and the other with E. coli. KUB on 08/22/17 showed nonspecific bowel gas pattern and moderate amount of colonic stool. In the ED, she received Kayexelate 30 gm, NS 1L, plus calcium, insulin, and dextrose. With her severe hyperkalemia and elevated creatinine, she was admitted to inpatient status under the hospitalist service. For complete details of the H&P refer to that document. Objective Vital signs: Temperature 95.9 F L 08/26/17 07:49 Pulse Rate 97 08/26/17 07:49 Respiratory Rate 20 08/26/17 07:49 Blood Pressure 136/66 08/26/17 07:49 Pulse Oximetry 93 08/26/17 07:49 Height/Weight/BMI: Height 1.55 m Weight 90.5 kg Body Mass Index 39.1 Hospital Course This is a general summary of the patient's hospital course. For more details refer to the complete medical record. Hospital course: 08/22/17 Admission Admit, inpatient status under Dr. Galeano. Hyperkalemia/elevated Creatinine: urgent treatment rendered in ED; Recheck K improved to 5.5. Will continue with IVF of 1/2 NS at 125 mL/hr. EKG obtain, showing peaked T waves. Monitor telemetry. UA pending. Constipation: Dulcolax suppository x1; initiate oral bowel regimen of MiraLAX BID and Senna Plus BID; Lactulose PRN. Consult speech therapy d/t hx of aphasia; with advancing dementia she carries a risk of aspiration. May need [facility] screen when patient stabilizes. Code status -- DNR. 08/23/17 Hyperkalemia resolved with IVF and treatment initiated yesterday in ED. Today K is 4.8. Renal function also improved with BUN down to 36 and creatinine 1.3. Continue 1/ 2 NS, decreasing rate to 75cc/hr. TSH was low at 0.3; she is not on any thyroid replacement. Will check free T3 and free T4. Seen by Dr. Chilel -- recommends restarting Wellbutrin to minimize withdrawal - recommends giving in morning. Speech therapy recommends thickened liquids. 08/24/17 Having episodes of improving mentation, but not sustaining alertness. Oral drive very diminished. Lab work showing improvement: Creatinine down to 1.0 with potassium normal at 4.4. Sodium normal. Sugars 110-160 range. WBC remains normal. Despite correction of potassium and renal function and improvement of hydration , mentation and cognitive gains not being seen. Discussed with family about patients current status - Minimal oral drive, minimal responsiveness. Realistically, I do not feel will see much interval improvement. Did discuss about Hospice care, are in favor for hospice due to her advanced dementia and significant functional and physical decline. [facility] as patient's care needs are well beyond what her could manage at home. Will continue with support through the weekend to see if any further rally is made, but like need Hospice intervention. 08/25/17 No gains from yesterday - if anything, more somnolent and restless. Essentially no oral drive. Will stop SCD as family wonders if they are bothering her. Not initiate SCD as looking to transition to comfort care. Can discontinue telemetry. Add lorazepam 0.5mg IV q4H prn and MS 1-2mg IV q2H prn for symptom control and comfort. Discussed with patient's daughter. Do feel hospice care reasonable. They are favoring [facility] as very con[facility] for daughter and . 08/26/17 Clinically, no gains made. Consulted with [facility]. They do feel patient appropriate for inpatient hospice. Will discharge to [facility] for inpatient hospice care. Condition terminal-anticipate life expectancy of less than 1 week. Terminal diagnosis: Advance dementia with rapid functional and cognitive decline. Roxanol and lorazepam for symptom control. Oral intake for comfort only - swallow impaired. Dr Grimm for medical care while on hospice. See orders for details. Time spent with patient: discharge greater than 30 minutes Resuscitation Status: Do Not Resuscitate Discharge Plan - Discharge Disposition Discharge Date: 08/26/17 Disposition: 02 Acute Care Hosp, Other *Condition: Stable for Transport Reason For Visit (Visit label in EMR): Hyperkalemia, weakness - Discharge Medications *Discharge Medications: New Morphine Sulfate Oral Liq [Roxanol Oral Liq] 5 mg SL Q2H PRN #30 ml PRN Reason: Pain /Air Hunger LORazepam [Ativan] 0.5 mg SL Q4HR PRN #30 tab PRN Reason: Anxiety/aggitation/air hunger Changed Venlafaxine HCl [Venlafaxine HCl ER] 150 mg PO DAILY #0 Discontinued Potassium Chloride [Klor-Con 10] 20 meq PO DAILY Insulin Glargine,Hum.rec.anlog [Lantus Solostar] 22 unit SQ HS Hydrocodone/APAP 7.5/325 [[place] 7.5/325] 1 tab PO Q4H PRN PRN Reason: Pain Cholecalciferol (Vitamin D3) [Vitamin D3] 2,000 unit PO DAILY Pantoprazole Sodium [Protonix] 40 mg PO ACB hydroCHLOROthiazide [Hydrochlorothiazide] 25 mg PO QAM Aspirin 81 mg PO DAILY Lisinopril [Prinivil] 20 mg PO HS Cariprazine HCl [Vraylar] 1.5 mg PO DAILY Insulin Lispro [HumaLOG] 19 unit SQ TIDWM Atorvastatin [Lipitor] 20 mg PO HS - Discharge Packet/Instructions *Diet: Oral comfort only *Activity: As tolerated. *Pain Management/Treatment: Hopsice to manage and adjust pain medications *Wound Care: N/A Additional Instructions: May continue oral venlafaxin only if able to swallow. *Expected Signs/Symptoms: Symptom control with hospice interventions. *Notify Physician if: Pain and symtpoms not controlled. *During Business Hours Contact: Nursing staff at [facility] *After Business Hours Contact: Nursing staff at [facility] *Pending Lab/Results: No Pending Lab - Referrals/Follow Up *Referrals/Follow Up: LAYNE GRIMM MD [Physician Nonstaff] - (Dr Grimm to initiate hospice care on [facility]'s arrival to [facility]. ) - Patient Handouts Patient Handouts: Hyperkalemia (GEN), Weakness (GEN) - Dismissal Complete Discharge Instructions are:: Complete Physician Narrative - Narrative Physician: Lan Galeano MD Attestation Narrative: Date: 08/26/17 Time: 1990 I have independently interviewed and examined patient prior to discharge. See my progress note from today for details. Medically stable for discharge to inpatient hospice care.
== END 2017-08-26 17:50 | disposition hospice, inpatient (51) | DRG 641 ==
LOC: ED 11:57 → MED 15:10
PROVIDERS: ADMIT Hospitalist; ATTEND Hospitalist